=== PATIENT | male | born 1960 | race Two or more races ===

== ENCOUNTER 2024-08-11 09:12 | Day surgery (SDC) | payer MEDICAID ==
[~2024-08-11] VITALS: Ht 165.1 cm; Wt 84.4 kg
[~2024-08-11 09:12] MED LIST: ATOR20TA50 PO; CHOL50007 PO; DAPA1TAB4 PO; INSU100I70 SC; METO-158 PO; RIV15T PO; SACU1TAB PO; SEMA2INJ3 SC; SPIR25TA8 PO
[2024-08-11] MEDS ORDERED: LIDOCAINE VISCOUS 2% 15ML UD PO ONE (09:30)
[2024-08-11] MEDS ORDERED: fentaNYL CITRATE 100 MCG/2 ML VL IV ONE (09:30)
[2024-08-11] MEDS ORDERED: MIDAZOLAM HCL 2MG/2ML 2ml VIAL (1mg/ml) IV ONE (09:30)
--- NOTE | 2024-08-11 10:37 | ECG ---
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
[2024-08-11] MEDS ORDERED: OPTISON 3ml Vial for INJ IV ONE ×2 (12:59)
--- NOTE | 2024-08-11 13:08 | DVHOP2 ---
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 The patient was brought to the cardiac quality assurance lab technician in n.p.o. state. the patient was given 15 ml of oral viscous lidocaine. the patient was placed in a left lateral decubitus position with bite block in mouth. NExt conscious sedation was administered per quality assurance lab technician protocol with _1_ mg of versed and __50_ mcg of fentanyl. Next a FABIAN probe was advanced to the mid esophagus with ease and multiple planar images obtained. At the completion of the procedure , probe was removed and there were no immediate complications. FINDINGS: Left Ventricle: dilated LV< severe dysfunction, dyskinetic apex and septum , LVEF estimated at <20% , lv opacification does not show any thrombus or filling defect Right Ventricle: low normal function Left atrium: enlarged, Right atrium: mild enlarged Left atrial appendage: no thrombus noted Aortic valve: trileaflet valve, no severe or AI Mitral Valve: structurally normal, mild mitral regurg, no MS Tricuspid Valve: mild tricuspid regurgitaiton, no TS Pulmonic Valve: strucutrally normal, no severe PIor PS Interatrial septum: negative color flow for R to L shunt Ascending aorta: no severe plaquing cont doac x 3-months total but consider stopping after that at risk for future thrombus TAHIR MORRIS MD Aug 11, 2024 13:08
== END 2024-08-11 14:05 | disposition home or self-care (01) ==
LOC: CATH 09:12
PROVIDERS: ATTEND Internal Medicine
DX: I08.1 Rheumatic disorders of both mitral and tricuspid valves (principal); I50.84 End stage heart failure; I44.7 Left bundle-branch block, unspecified; J44.9 Chronic obstructive pulmonary disease, unspecified; I10 Essential (primary) hypertension; E78.00 Pure hypercholesterolemia, unspecified; Z79.899 Other long term (current) drug therapy; Z98.890 Other specified postprocedural states; I25.10 Atherosclerotic heart disease of native coronary artery without angina pectoris; Z98.61 Coronary angioplasty status; Z95.0 Presence of cardiac pacemaker
CPT/HCPCS: 93005; 93312; J2250; J3010; Q9956; 99152